=== PATIENT | female | born 1975 ===

== ENCOUNTER 2018-06-04 12:20 | Emergency (ER) | payer OTHER ==
--- NOTE | 2018-06-04 14:29 | ED PDOC ---
Arrival/HPI - General Chief Complaint: Upper Extremity Problem/Injury Time Seen by Provider: 06/04/18 13:41 Historian: Patient - History of Present Illness Narrative History of Present Illness (Text): 06/04/18 14:21 42-year-old female presents today with a one-week history of right shoulder pain and right-sided neck pain. Patient states the pain started the neck about one week ago patient states she has been taking Motrin intermittently. Patient states the pain is now radiating into the right shoulder. Patient denies numbness weakness or tingling in the extremity. Patient states she feels the pain is worse with range of motion of the shoulder and neck. no fever/chills. She denies headaches dizziness or weakness. No chest pain or shortness of breath. No medications have been taken for pain today. No other complaints Past Medical History - Provider Review Nursing Documentation Reviewed: Yes - Travel History Have you recently traveled outside [place] w/in the past 3 mons?: No - Infectious Disease Hx of Infectious Diseases: None - Hematological/Oncological Hx Cancer: Yes (uterine) - Genitourinary/Gynecological Other/Comment: uterine ca - Psychiatric Hx Substance Use: No - Surgical History Hx Hysterectomy: Yes Other/Comment: uterine sx/uterine ca - Anesthesia Hx Anesthesia: Yes Hx Anesthesia Reactions: No Hx Malignant Hyperthermia: No Family/Social History - Physician Review Nursing Documentation Reviewed: Yes Family/Social History: Unknown Family HX Smoking Status: Never Smoked Hx Alcohol Use: No Hx Substance Use: No Allergies/Home Meds Allergies/Adverse Reactions: Allergies No Known Allergies Allergy (Verified 06/04/18 13:41) Review of Systems - Review of Systems Constitutional: absent: Fatigue, Fevers Respiratory: absent: SOB, Cough Gastrointestinal: absent: Abdominal Pain, Nausea, Vomiting Musculoskeletal: Arthralgias, Neck Pain Skin: absent: Rash, Pruritis Neurological: absent: Headache, Dizziness Psychiatric: absent: Anxiety, Depression Physical Exam Vital Signs Reviewed: Yes Vital Signs Temp Pulse Resp BP Pulse Ox 06/04/18 14:40 97.9 F 62 18 138/91 H 100 Temperature: Afebrile Blood Pressure: Normal Pulse: Regular Respiratory Rate: Normal Appearance: Positive for: Well-Appearing, Non-Toxic, Comfortable Pain Distress: None Mental Status: Positive for: Alert and Oriented X 3 - Systems Exam Head: Present: Atraumatic Pupils: Present: PERRL Extroacular Muscles: Present: EOMI Mouth: Present: Moist Mucous Membranes Neck: Present: Normal Range of Motion, Paraspinal Tenderness (+ right sided paraspinal tenderness and right sided trapezius tenderness. ), Trachea Midline. No: MIDLINE TENDERNESS Respiratory/Chest: Present: Clear to Auscultation, Good Air Exchange. No: Respiratory Distress, Accessory Muscle Use, Tender to Palpation Cardiovascular: Present: Regular Rate and Rhythm, Normal S1, S2. No: Murmurs Back: Present: Normal Inspection Upper Extremity: Present: Normal ROM, Tenderness (right shoulder; + ttp over anterior/posterior aspect of shoulder; full rom of shoulder; sensation and distal pulses intact; cap refill <2. ) Lower Extremity: Present: Normal ROM Neurological: Present: GCS=15, Speech Normal Skin: Present: Warm, Dry, Normal Color. No: Rashes Psychiatric: Present: Alert, Oriented x 3 Medical Decision Making ED Course and Treatment: 06/04/18 14:23 Patient nontoxic well-appearing in no distress with stable vital signs. Toradol, Flexeril xray right shoulder; Patient reassessment: Feeling better with medications, Muscle strength 5 out of 5 bilaterally. I advised to followup with the orthopedist within the next 2 days. Return if symptoms worsen persist or new symptoms develop Impression: Neck pain, shoulder pain Motrin every 6 hours as needed for pain Flexeril one tablet every 8 hours as needed for muscle spasms: May cause drowsiness Followup with the orthopedist within the next 2 days Followup with primary care physician within the next 2 days Return if symptoms worsen persist or if new symptoms develop - RAD Interpretation Radiology Orders: 06/04/18 13:42 SHOULDER RIGHT [RAD] Stat - Medication Orders Current Medication Orders: Discontinued Medications Cyclobenzaprine HCl (Flexeril) 10 mg PO STAT STA Stop: 06/04/18 13:43 Last Admin: 06/04/18 13:47 Dose: 10 mg Ketorolac Tromethamine (Toradol) 60 mg IM STAT STA Stop: 06/04/18 13:43 Last Admin: 06/04/18 13:47 Dose: 60 mg MAR Pain Assessment Document 06/04/18 13:47 GMD (Rec: 06/04/18 13:47 GMD [id number]) Pain Reassessment Is this a pain reassessment? No Presence of Pain Presence of Pain Yes IM Administration Charges Document 06/04/18 13:47 GMD (Rec: 06/04/18 13:47 GMD [id number]) Injection Site MAR Injection Site Left Deltoid Charges for Administration # of IM Administrations 1 Disposition/Present on Arrival - Present on Arrival Any Indicators Present on Arrival: No History of DVT/PE: No History of Uncontrolled Diabetes: No Urinary Catheter: No History of Decub. Ulcer: No History Surgical Site Infection Following: None - Disposition Have Diagnosis and Disposition been Completed?: Yes Diagnosis: Neck pain, Shoulder pain Disposition: HOME/ ROUTINE Disposition Time: 14:54 Patient Plan: Discharge Condition: GOOD Discharge Instructions (ExitCare): Shoulder Pain (DC), Neck Pain Additional Instructions: Motrin every 6 hours as needed for pain Flexeril one tablet every 8 hours as needed for muscle spasms: May cause drowsiness Followup with the orthopedist within the next 2 days Followup with primary care physician within the next 2 days Return if symptoms worsen persist or if new symptoms develop Prescriptions: Cyclobenzaprine [Cyclobenzaprine HCl] 10 mg PO Q8 #10 tab Ibuprofen [Motrin] 600 mg PO Q6H PRN #20 tab PRN Reason: pain/fever reduction Referrals: PCP,NO [Primary Care Provider] - Follow up with primary Joanie Mead MD [Medical Doctor] - Follow up with primary [facility] [Outside] - Follow up with primary [facility] [Outside] - Follow up with primary Brannon Neri MD [Staff Provider] - Follow up with primary Forms: [employer] (Turkmen), WORK NOTE
[2018-06-04 14:41] VITALS: RESP 18; TEMP 97.9
--- NOTE | 2018-06-04 14:45 | RAD ---
Date of service: 06/04/2018 PROCEDURE: Radiographs of the Right Shoulder HISTORY: shoulder pain x 1 week COMPARISON: No prior. FINDINGS: BONES: Normal. No fracture. JOINTS: Normal. Glenohumeral and acromioclavicular joints preserved. No osteoarthritis. SOFT TISSUES: Normal. OTHER FINDINGS: None. IMPRESSION: Normal radiographs of the right shoulder.
[2018-06-04 15:28] VITALS: BP 142/79; PULSE 78; O2SAT 99
== END 2018-06-04 15:30 | disposition home or self-care (01) ==
LOC: ED 12:20
DX: M25.511 Pain in right shoulder (principal); M54.2 Cervicalgia
CPT/HCPCS: 73030; 96372; 99284; J1885